=== PATIENT | female | born 1955 | race Two or more races ===

== ENCOUNTER 2018-06-10 06:10 | Day surgery (SDC) | payer OTHER ==
[~2018-06-10 06:10] MED LIST: AMARLY PO; CIMBALTA PO; CLONAZEPAM2 MG PO; DIOVAN160 M1 PO; FORTAMET1000 MG PO; GABAPENTIN800 MG PO; PERCOCET 5/3251 TAB PO; PLAQUENIL PO; PREDISONE PO; PREVACID30 MG PO; SEPTRA DS TABLE1 TAB PO
== END 2018-06-10 14:55 | disposition home or self-care (01) ==
LOC: CIR.AMB 06:10
DX: M70.21 Olecranon bursitis, right elbow (principal)

== ENCOUNTER 2018-06-27 12:59 | Emergency (ER) | payer OTHER ==
[~2018-06-27] VITALS: Ht 152.4 cm; Wt 77.1 kg
== END 2018-06-27 19:44 | disposition home or self-care (01) ==
LOC: ER 12:59
DX: L03.113 Cellulitis of right upper limb (principal); T81.4XXS Infection following a procedure, sequela

== ENCOUNTER 2018-08-26 09:12 | Emergency (ER) | payer OTHER ==
[~2018-08-26] VITALS: Ht 154.9 cm; Wt 84.4 kg
== END 2018-08-26 15:37 | disposition home or self-care (01) ==
LOC: ER 09:12
DX: R53.1 Weakness (principal)

== ENCOUNTER 2018-09-08 06:36 | Emergency (ER) | payer OTHER ==
[~2018-09-08] VITALS: Ht 154.9 cm; Wt 84.4 kg
[2018-09-08] MEDS ORDERED: AMOX1TAB5 PO (07:42)
== END 2018-09-08 15:00 | disposition home or self-care (01) ==
LOC: ER 06:36
DX: J40 Bronchitis, not specified as acute or chronic (principal); R06.2 Wheezing

== ENCOUNTER 2018-11-18 08:38 | Outpatient (CLI) | payer OTHER ==
[~2018-11-18 08:38] MED LIST changes: +AMOX1TAB5 PO
== END 2018-11-18 15:00 | disposition home or self-care (01) ==
LOC: LAB 08:38
DX: E11.9 Type 2 diabetes mellitus without complications (principal); E78.00 Pure hypercholesterolemia, unspecified; E78.3 Hyperchylomicronemia; D66 Hereditary factor VIII deficiency; D65 Disseminated intravascular coagulation [defibrination syndrome]; R39.0 Extravasation of urine; Z01.810 Encounter for preprocedural cardiovascular examination; I10 Essential (primary) hypertension

== ENCOUNTER 2018-11-29 05:50 | Day surgery (SDC) | payer OTHER | END 2018-11-29 10:25 | disposition home or self-care (01) | LOC: CIR.AMB 05:50 | DX: T81.31XA Disruption of external operation (surgical) wound, not elsewhere classified, initial encounter (principal) ==

== ENCOUNTER 2019-02-12 08:20 | Emergency (ER) | payer OTHER ==
[~2019-02-12] VITALS: Ht 157.5 cm; Wt 77.1 kg
== END 2019-02-12 12:09 | disposition home or self-care (01) ==
LOC: ER 08:20
DX: S30.0XXA Contusion of lower back and pelvis, initial encounter (principal); M54.5 Low back pain; W18.09XA Striking against other object with subsequent fall, initial encounter; Y93.89 Activity, other specified; Y92.018 Other place in single-family (private) house as the place of occurrence of the external cause; Y99.8 Other external cause status

== ENCOUNTER 2019-08-08 06:28 | Day surgery (SDC) | payer OTHER ==
[~2019-08-08 06:28] MED LIST changes: +LIPITOR40 MG PO
== END 2019-08-08 14:15 | disposition home or self-care (01) ==
LOC: CIR.AMB 06:28
DX: M70.21 Olecranon bursitis, right elbow (principal)

== ENCOUNTER 2019-09-19 16:53 | Emergency (ER) | payer OTHER ==
[~2019-09-19] VITALS: Ht 157.5 cm; Wt 79.4 kg
== END 2019-09-19 20:41 | disposition home or self-care (01) ==
LOC: ER 16:53
DX: M32.8 Other forms of systemic lupus erythematosus (principal)